=== PATIENT | female | born 1965 | race Caucasian/White ===

== ENCOUNTER 2020-04-21 17:16 | Emergency (ER) | payer OTHER ==
--- NOTE | 2020-04-21 18:13 | EDM.PDOC ---
ED HPI GENERAL MEDICAL PROBLEM - General Chief Complaint: Lower Extremity Injury/Pain Stated Complaint: RT KNEE PAIN Time Seen by Provider: 04/21/20 18:00 Source of Information: Reports: Patient History Limitations: Reports: Other (no old records) - History of Present Illness INITIAL COMMENTS - FREE TEXT/NARRATIVE: 54 yo [place] presents with worse than usual medial R knee pain. Says the knee is often swollen. Pain worse with weight bearing. No known injury. 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 Has used crutches in the past. Is here only until Friday. 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: Reports: Other (see below) (none) Right Knee Pain Score (Numeric/FACES): 9 - Related Data Allergies Allergy/AdvReac Type Severity Reaction Status Date / Time Corticosteroids Allergy Other Verified 04/21/20 17:53 (Glucocorticoids) morphine Allergy Other Verified 04/21/20 17:53 Home Meds: Home Meds Cyclobenzaprine [Flexeril] 10 mg PO TID PRN 04/21/20 [History] Hydrocodone/Acetaminophen [Hydrocodon-Acetaminophn 10-325] 1 tab PO Q4H PRN 04/21/20 [History] Past Medical History Genitourinary History: Reports: None [employer] WORK[employer] History: Reports: Musculoskeletal History: Reports: None Neurological History: Reports: Concussion - Past Surgical History Head Surgeries/Procedures: Reports: None Female Surgical History: Reports: Section, Hysterectomy Neurological Surgical History: Reports: None Musculoskeletal Surgical History: Reports: Other (See Below) Other Musculoskeletal Surgeries/Procedures:: right ankle multiple surgerys, right knee Dermatological Surgical History: Reports: None Social & Family History - Tobacco Use Smoking Status *Q: Never Smoker Second Hand Smoke Exposure: No - Caffeine Use Caffeine Use: Reports: Tea - Recreational Drug Use Recreational Drug Use: No Review of Systems - Review of Systems Review Of Systems: See Below Constitutional: Reports: No Symptoms Musculoskeletal: Reports: Joint Pain (R medial knee) Skin: Reports: No Symptoms Neurological: Reports: No Symptoms ED EXAM, GENERAL - Physical Exam Exam: See Below Exam Limited By: No Limitations General Appearance: Alert, WD/WN, No Apparent Distress Extremities: Normal Inspection, Limited Range of Motion (due to pain), Other (No ligamentous laxity. Medial joint line pain noted(ant/medial).). No: Normal Range of Motion, Non-Tender, No Pedal Edema, Increased Warmth Neurological: Alert, Oriented, CN II-XII Intact, Normal Cognition, No Motor/Sensory Deficits Psychiatric: Normal Affect, Normal Mood Skin Exam: Warm, Dry, Intact, Normal Color, No Rash Course - Vital Signs Text/Narrative:: Doing well with a knee immobilizer Last Recorded V/S: Last Vital Signs Temp 36.3 C 04/21/20 17:56 Pulse 79 04/21/20 17:56 Resp 14 04/21/20 17:56 BP 161/84 H 04/21/20 17:56 Pulse Ox 96 04/21/20 17:56 Departure - Departure Time of Disposition: 18:35 Disposition: Home, Self-Care 01 Condition: Good Clinical Impression: Right knee meniscal tear Qualifiers: Tear current or old: current Encounter type: initial encounter Meniscus of knee: medial Meniscus tear of knee type: unspecified type Qualified Code(s): S83.241A - Other tear of medial meniscus, current injury, right knee, initial encounter - Discharge Information *PRESCRIPTION DRUG MONITORING PROGRAM REVIEWED*: Not Applicable *COPY OF PRESCRIPTION DRUG MONITORING REPORT IN PATIENT KRISTAL: Not Applicable Instructions: Meniscus Tear Referrals: PCP,None [Primary Care Provider] - Forms: ED Department Discharge Additional Instructions: Wear immobilizer except when bathing. You may use ibuprofen and/or acetaminophen for pain control if needed. See an orthopedic doctor when you return home for further work up. Sepsis Event Note (ED) - Evaluation Sepsis Screening Result: No Definite Risk - Focused Exam Vital Signs: Vital Signs Temp Pulse Resp BP Pulse Ox 04/21/20 17:56 36.3 C 79 14 161/84 H 96 04/21/20 17:39 36.3 C 79 14 161/84 H 96
== END 2020-04-21 18:42 | disposition home or self-care (01) ==
LOC: JP.ED 17:16
DX: S83.241A Other tear of medial meniscus, current injury, right knee, initial encounter (principal); Z88.8 Allergy status to other drugs, medicaments and biological substances; Z88.5 Allergy status to narcotic agent; X58.XXXA Exposure to other specified factors, initial encounter
CPT/HCPCS: 99283